=== PATIENT | female | born 1975 | race Caucasian/White ===

== ENCOUNTER 2021-02-25 21:50 | Emergency (ER) | payer BC ==
[~2021-02-25] VITALS: Ht 165.1 cm; Wt 95.3 kg
[2021-02-25 21:50] VITALS: BP_SYST 153
--- NOTE | 2021-02-25 21:52 | NUR ---
Patient to ER bed 2 to gown for evaluation. Side rails up.
--- NOTE | 2021-02-25 22:00 | NUR ---
Patient came in complaining of hives from an allergic reaction. Patient stated she had shrimp, held puppies, and had aspirin so cause is unknown. Patient had 0.[address] to [address] hospital and stated that swelling is going down but still feels swollen on her throat. Patient stated she is sensitive to all pain medications.
[2021-02-25] MEDS ORDERED: LEVO112T5 PO (22:05)
[2021-02-25] MEDS ORDERED: methylPREDNISolone SOD SUCC/PF 62.5 MG/ML VIAL IVP ONE (22:30)
[2021-02-25] MEDS ORDERED: RACEPINEPHRINE HCL 0.5 ML VIAL.NEB INH ONE (22:30)
[2021-02-25] MEDS ORDERED: FAMOTIDINE PF 20 MG/2 ML VIAL IVP ONE (22:30)
[2021-02-25] MEDS ORDERED: DIPHENHYDRAMINE INJ 50 MG/ML VIAL IVP ONE (22:30)
[2021-02-25] MEDS ORDERED: NACL 0.9% 1,000 ML IV ONE (22:45)
--- NOTE | 2021-02-25 23:00 | NUR ---
Patient's gauge #18 IV infiltrated. Took out IV. Patient refuses another IV placement.
[2021-02-26] MEDS ORDERED: PRED20TA PO ×2 (00:42→01:00)
[2021-02-26] MEDS ORDERED: FAMO40TA71 PO (01:00)
[2021-02-26] MEDS ORDERED: LORA-843 PO (01:00)
[2021-02-26] MEDS ORDERED: EPIN0.3P3 IM (01:00)
[2021-02-26 01:04] VITALS: BP_SYST 153
--- NOTE | 2021-02-26 01:05 | NUR ---
Patient given written and verbal discharge instructions and verbalizes understanding. ER MD discussed with patient the results and treatment provided. Patient in stable condition. ID arm band removed. IV catheter removed intact and dressing applied, no active bleeding. Rx of Loratadine, epinephrine, famotidine, prednisone given. Patient educated on pain management and to follow up with PMD. Pain Scale 2/10 Opportunity for questions provided and answered. Medication side effect fact sheet provided.
== END 2021-02-26 01:04 | disposition home or self-care (01) ==
LOC: SED 21:50
DX: T78.3XXA Angioneurotic edema, initial encounter (principal); T78.1XXA Other adverse food reactions, not elsewhere classified, initial encounter; Z79.899 Other long term (current) drug therapy; X58.XXXA Exposure to other specified factors, initial encounter
CPT/HCPCS: 94640; 96374; 96375; 99284; J1200; J2930; J3490